=== PATIENT | female | born 1965 | race Caucasian/White ===

== ENCOUNTER 2021-09-18 09:14 | Observation (INO) ==
[2021-09-18] MEDS ORDERED: Gadolinium Contrast Agent (WT Based) IV PRN (10:14)
[2021-09-18 10:25] LABS: Hematocrit 36.4 % (35.3-44.9); Hemoglobin 11.4 g/dL (11.5-15.4); Mean Corpuscular HGB Conc 31.3 g/dL (31.6-35.5); Mean Corpuscular Hemoglobin 28.6 pg (28.0-33.3); Mean Corpuscular Volume 91.2 fL (83.0-100.0); Mean Platelet Volume 9.9 fL (9.4-12.4); Nucleated Red Blood Cells 0.6 /100 WBC (0); Platelet Count 124 K/mcL (140-400); Red Blood Count 3.99 M/mcL (3.82-4.97); Red Cell Distribution Width 13.5 % (11.5-14.5); White Blood Count 3.5 K/mcL (4.3-11.1)
[2021-09-18 10:47] LABS: Eosinophils # 0.1 K/mcL (0.0-0.6); Lymphocytes # 0.4 K/mcL (0.6-4.6); Monocytes # 0.1 K/mcL (0.0-1.3); Neutrophils # 2.8 K/mcL (1.6-8.9); Platelet Estimate Slight Decrease (Normal)
[2021-09-18 10:52] LABS: BUN/Creatinine Ratio 19 (6-26); Blood Urea Nitrogen 10 mg/dL (6-20); Calcium 9.8 mg/dL (8.6-10.3); Carbon Dioxide 28 mEq/L (23-29); Chloride 98 mEq/L (98-107); Glucose 89 mg/dL (70-105); Osmolality,Calculated 285 (280-300); Potassium 3.1 mEq/L (3.5-5.1); Sodium 138 mEq/L (136-145); eGFR For African Americans > 60 (> 60); eGFR For Non-African Americans > 60 (> 60)
[2021-09-18] MEDS ORDERED: GADOBUTROL 30 MMOL/30 ML VIAL IVP ONE (12:16)
[2021-09-18] MEDS ORDERED: Naloxone 0.4 MG/ML INJ IVP PRN (14:40)
[2021-09-18] MEDS: dexAMETHasone 4 MG TABLET PO SCH ×2 (17:52→19:54)
[2021-09-18] MEDS: *HR* OxyCODONE/APAP 7.5/325 TABLET PO PRN (19:54)
[2021-09-18] MEDS ORDERED: Sennosides 8.6 MG TABLET PO PRN (20:35)
[2021-09-18] MEDS ORDERED: *HR* HYDROcodone/Acet 5/325 mg TABLET PO PRN (20:35)
[2021-09-18] MEDS ORDERED: Ipratropium/Albuterol Neb 3 ML IH PRN (20:35)
[2021-09-18] MEDS ORDERED: ALPRAZolam 0.5 MG TABLET PO PRN (20:35)
[2021-09-18] MEDS ORDERED: Famotidine 20 MG TABLET PO SCH (21:00)
[2021-09-18] MEDS: Gabapentin 100 MG CAPSULE PO SCH (22:00)
[2021-09-19] MEDS ORDERED: Levothyroxine 25 MCG TABLET PO SCH (06:30)
[2021-09-19 06:42] VITALS: BP 117/78; PULSE 97; TEMP 98; O2SAT 94
[2021-09-19] MEDS ORDERED: GADOBUTROL 30 MMOL/30 ML VIAL IVP ONE (07:15)
[2021-09-19] MEDS: dexAMETHasone 4 MG TABLET PO SCH (08:28)
[2021-09-19] MEDS: Multivit/Ca/Min/Fe/FA 1 TAB TABLET PO SCH ×2 (08:28→08:34)
[2021-09-19] MEDS: Gabapentin 100 MG CAPSULE PO SCH (08:28)
[2021-09-19] MEDS ORDERED: Aspirin Enteric Coated 81 MG Tablet PO SCH (09:00)
[2021-09-19] MEDS ORDERED: lisinopriL 10 MG TABLET PO SCH (09:00)
[2021-09-19] MEDS ORDERED: Pantoprazole 40 MG VIAL IVP SCH (09:00)
[2021-09-19] MEDS: Potassium Chloride Elixir 20 MEQ/15 ML UDC PO ONE ×2 (09:27→09:32)
[2021-09-19] MEDS: *HR* OxyCODONE/APAP 7.5/325 TABLET PO PRN (09:27)
== END 2021-09-19 13:08 | disposition home or self-care (01) ==
LOC: 3BNU 09:14 → EMEROOARM 09:14 → SUATTDRO 14:43 → 3BNU 17:54
PROVIDERS: ADMIT Internal Medicine; ATTEND Internal Medicine